=== PATIENT | male | born 1960 | race African-American/Black ===

== ENCOUNTER 2021-09-11 06:18 | Emergency (ER) | payer BC, OTHER ==
[~2021-09-11] VITALS: Ht 167.6 cm; Wt 73.0 kg
[2021-09-11 09:15] VITALS: BP 151/101
== END 2021-09-11 09:20 | disposition home or self-care (01) ==
LOC: ER 06:18
DX: T25.021A Burn of unspecified degree of right foot, initial encounter (principal); S93.491A Sprain of other ligament of right ankle, initial encounter; Z91.018 Allergy to other foods; X17.XXXA Contact with hot engines, machinery and tools, initial encounter; W22.8XXA Striking against or struck by other objects, initial encounter; Y93.89 Activity, other specified; Y92.89 Other specified places as the place of occurrence of the external cause
CPT/HCPCS: 73610; 99283